=== PATIENT | female | born 1960 | race Caucasian/White ===

== ENCOUNTER 2018-11-01 11:14 | Emergency (ER) | payer MEDICARE, OTHER ==
[~2018-11-01] VITALS: Ht 175.3 cm; Wt 54.4 kg
[~2018-11-01 11:14] MED LIST: ACYC400 PO; ACYC800 PO; ALBU90OI INH; CARI350; CARI350 PO; CODACE60 PO; DIAZ5 PO; HYDACE10B PO; HYDACE5325; Keflex500 MG PO; Morphine Sulfat15 MG PO; PRED20 PO; SOMA250 MG PO
[2018-11-01 12:32] LABS: BASOPHILS ABSOLUTE AUTO 0.03 K/mm3 (0.00-0.23); BASOPHILS PERCENT AUTO 0 % (0-2); EOSINOPHILS ABSOLUTE AUTO 0.04 K/mm3 (0.00-0.68); EOSINOPHILS PERCENT AUTO 1 % (0-6); Hematocrit 42.5 % (33.0-51.0); Hemoglobin 13.9 g/dL (11.5-16.0); IMMATURE GRAN ABSOLUTE AUTO 0.02 K/mm3 (0.00-0.10); IMMATURE GRAN PERCENT AUTO 0 % (0-1); LYMPHOCYTES ABSOLUTE AUTO 1.34 K/mm3 (0.84-5.20); LYMPHOCYTES PERCENT AUTO 18 % (21-46); MONOCYTES ABSOLUTE AUTO 0.61 K/mm3 (0.16-1.47); MONOCYTES PERCENT AUTO 8 % (4-13); Mean Corpuscular HGB 33.3 pg (26.0-34.0); Mean Corpuscular HGB Conc 32.7 g/dL (31.5-36.5); Mean Corpuscular Volume 102 fL (80-100); Mean Platelet Volume 9.4 fL (9.1-12.4); NEUTROPHILS ABSOLUTE AUTO 5.58 K/mm3 (1.96-9.15); NEUTROPHILS PERCENT AUTO 73 % (41-73); Platelet Count 249 K/mm3 (150-400); RDW Coefficient Variation 12.1 % (11.7-14.2); RDW Standard Deviation 45.8 fL (35.1-46.3); Red Blood Cell Count 4.17 M/mm3 (3.80-5.20); White Blood Cell Count 7.62 K/mm3 (4.00-11.30)
[2018-11-01 13:23] LABS: Alanine Aminotransfer (ALT/SGP 31 U/L (12-78); Albumin, Blood 3.5 g/dL (3.4-5.0); Alk Phos 85 U/L (50-136); Anion Gap 5 mmol/L (6-16); Aspartate Aminotrans (AST/SGOT 19 U/L (12-37); Bilirubin, Total 0.3 mg/dL (0.1-1.0); Blood Urea Nitrogen 3 mg/dL (8-24); CO2, Blood 29 mmol/L (21-32); Calcium, Blood 8.4 mg/dL (8.5-10.1); Chloride, Blood 106 mmol/L (98-108); Globulin, Blood 3.5 g/dL (2.2-4.0); Glucose, Blood 92 mg/dL (70-99); Potassium, Blood 3.8 mmol/L (3.5-5.5); Sodium, Blood 140 mmol/L (136-145)
[2018-11-01 14:00] LABS: Bun/Creatinine Ratio 5.8 (12.0-20.0); Creatinine, Blood 0.52 mg/dL (0.40-1.00); Glomerular Filtration Rate >60 (60-)
[2018-11-01] MEDS ORDERED: KETO10 PO (15:26)
[2018-11-01] MEDS ORDERED: Cyclobenzaprine5 MG PO (15:26)
[2018-11-01] MEDS ORDERED: CEPH500 PO (15:26)
[2018-11-01] MEDS ORDERED: Bactrim Ds Tab1 EACH PO (15:26)
== END 2018-11-01 15:38 | disposition home or self-care (01) ==
LOC: ER 11:14
PROVIDERS: Physician Assistant
DX: M54.12 Radiculopathy, cervical region (principal); L03.115 Cellulitis of right lower limb; G89.29 Other chronic pain; F17.210 Nicotine dependence, cigarettes, uncomplicated
CPT/HCPCS: 36415; 70450; 80053; 82947; 85025; 93005; 93010; 99284-25

== ENCOUNTER 2019-01-10 06:35 | Day surgery (SDC) | payer MEDICARE, OTHER ==
[~2019-01-10] VITALS: Ht 170.2 cm; Wt 49.5 kg
[~2019-01-10 06:35] MED LIST changes: +Bactrim Ds Tab1 EACH PO; +CEPH500 PO; +Cyclobenzaprine5 MG PO; +KETO10 PO
[2019-01-10] MEDS ORDERED: Percocet 5-3251 EACH (07:03)
[2019-01-10] MEDS ORDERED: ALBU90OI (07:03)
--- NOTE | 2019-01-10 07:05 | NUR ---
01/10/19 0705 Za Brennre NOTIFIED CHARGE NURSE OF PT NPO STATUS, SHE IS NOTIFING DR HALL.
== END 2019-01-10 08:48 | disposition home or self-care (01) ==
LOC: ORSCSDS 06:35
PROVIDERS: Orthopaedic Surgery
PROC: 01N50ZZ Release Median Nerve, Open Approach (ICD-10-PCS; principal; 2019-01-10 07:30)
DX: G56.01 Carpal tunnel syndrome, right upper limb (principal); G47.33 Obstructive sleep apnea (adult) (pediatric); J44.9 Chronic obstructive pulmonary disease, unspecified; F41.9 Anxiety disorder, unspecified; Z87.891 Personal history of nicotine dependence
CPT/HCPCS: J2250; J2405; J2704; J7120

== ENCOUNTER 2020-12-31 08:24 | Day surgery (SDC) | payer MEDICARE, OTHER ==
[~2020-12-31] VITALS: Ht 170.2 cm; Wt 56.1 kg
[~2020-12-31 08:24] MED LIST changes: +ALBU90OI; +Percocet 5-3251 EACH
--- NOTE | 2020-12-31 08:53 | NUR ---
12/31/20 0853 Maddy Champagne CALL LIGHT WITHIN REACH
[2021-01-14] MEDS ORDERED: ALBU90OI INH (10:50)
[2021-01-14] MEDS ORDERED: FISH OIL 1,2001 EAC7 PO (10:50)
[2021-01-14] MEDS ORDERED: BEVESPI AEROS10.7 G1 (10:50)
[2021-01-14] MEDS ORDERED: OXYC10TA19 PO (10:50)
[2021-01-14] MEDS ORDERED: ROSU5 PO (10:50)
[2021-01-14] MEDS ORDERED: STIOLTO RESPIMAT4 G1 (10:51)
[2021-01-14] MEDS ORDERED: MULTIPLE VITAM1 EACH PO (10:51)
[2021-01-14] MEDS ORDERED: MOBIC15 MG PO (10:51)
== END 2020-12-31 10:10 | disposition home or self-care (01) ==
LOC: ORSCSDS 08:24
PROVIDERS: Orthopaedic Surgery
PROC: 01N50ZZ Release Median Nerve, Open Approach (ICD-10-PCS; principal; 2020-12-31 09:30)
DX: G56.02 Carpal tunnel syndrome, left upper limb (principal); G47.33 Obstructive sleep apnea (adult) (pediatric); J44.9 Chronic obstructive pulmonary disease, unspecified; K21.9 Gastro-esophageal reflux disease without esophagitis; Z87.891 Personal history of nicotine dependence; Z79.899 Other long term (current) drug therapy
CPT/HCPCS: J2250; J2704; J3010; J7120

== ENCOUNTER 2021-01-08 20:54 | Emergency (ER) | payer MEDICARE, OTHER ==
[~2021-01-08] VITALS: Ht 170.2 cm; Wt 54.4 kg
== END 2021-01-09 04:15 | disposition home or self-care (01) ==
LOC: ER 20:54
DX: F15.129 Other stimulant abuse with intoxication, unspecified (principal); Z87.891 Personal history of nicotine dependence
CPT/HCPCS: 36415; 80053; 82550; 82553; 84439; 84443; 85025; 93005; 93010; 96374; 99284-25; G0480; J2060; P9612

== ENCOUNTER 2021-01-20 12:11 | Day surgery (SDC) | payer MEDICARE, OTHER ==
[~2021-01-20] VITALS: Ht 170.2 cm; Wt 51.3 kg
[~2021-01-20 12:11] MED LIST changes: +BEVESPI AEROS10.7 G1; +FISH OIL 1,2001 EAC7 PO; +MOBIC15 MG PO; +MULTIPLE VITAM1 EACH PO; +OXYC10TA19 PO; +ROSU5 PO; +STIOLTO RESPIMAT4 G1
== END 2021-01-20 14:05 | disposition home or self-care (01) ==
LOC: ORSCSDS 12:11
PROVIDERS: Internal Medicine Gastroenterology
PROC: 0DBE8ZX Excision of Large Intestine, Via Natural or Artificial Opening Endoscopic, Diagnostic (ICD-10-PCS; principal; 2021-01-20 13:15)
PROC: 0DBK8ZX Excision of Ascending Colon, Via Natural or Artificial Opening Endoscopic, Diagnostic (ICD-10-PCS; principal; 2021-01-20 13:15)
DX: R19.4 Change in bowel habit (principal); D12.2 Benign neoplasm of ascending colon; K57.30 Diverticulosis of large intestine without perforation or abscess without bleeding; K64.8 Other hemorrhoids; Z86.010 Personal history of colon polyps; G47.33 Obstructive sleep apnea (adult) (pediatric); J44.9 Chronic obstructive pulmonary disease, unspecified; Z87.891 Personal history of nicotine dependence
CPT/HCPCS: 88305; J2704; J7120